=== PATIENT | male | born 1975 | race Two or more races ===

== ENCOUNTER 2020-04-03 10:00 | Outpatient (CLI) | payer BC ==
[2020-04-06 03:07] LABS: *AREA 13 IGE,TOTAL 34 IU/mL (6-495)
== END 2020-04-03 23:59 | disposition home or self-care (01) ==
LOC: MSC 10:00
PROVIDERS: ATTEND Internal Medicine
DX: N40.0 Benign prostatic hyperplasia without lower urinary tract symptoms (principal); L40.9 Psoriasis, unspecified; R10.9 Unspecified abdominal pain; M54.5 Low back pain
CPT/HCPCS: 36415; 76770-TC; 82785